=== PATIENT | female | born 1950 ===

== ENCOUNTER 2021-10-03 20:34 | Inpatient (IN) | payer MEDICARE ==
[~2021-10-03] VITALS: Ht 160 cm; Wt 105.8 kg
[2021-10-03 20:59] LABS: BASOPHILS % (AUTO) 0.6 % (0.0-2.0); EOSINOPHILS % (AUTO) 3.6 % (1.0-6.0); HEMATOCRIT 33.6 % (36-46); HEMOGLOBIN 11.1 g/dL (12.0-16.0); LYMPHOCYTES # (AUTO) 1.2 K/uL (1.0-4.8); LYMPHOCYTES % (AUTO) 5.8 % (22.0-44.0); MEAN CORPUSCULAR HEMOGLOBIN 28.7 pg (26.0-34.0); MEAN CORPUSCULAR HGB CONC 33.2 G/dL (31.0-37.0); MEAN CORPUSCULAR VOLUME 86 fL (80-100); MONOCYTES # (AUTO) 0.8 K/uL (0.1-1.0); MONOCYTES % (AUTO) 3.7 % (2.0-9.0); NEUTROPHILS % (AUTO) 86.3 % (40.0-70.0); PLATELET COUNT (AUTO) 510 K/uL (150-450); RED BLOOD CELL COUNT(AUTO) 3.89 MIL/uL (4.00-5.20); RED CELL DISTRIBUTION WIDTH 14.8 % (11.5-14.5)
[2021-10-03 21:11] LABS: ANION GAP 10 mmol/L (8-16); CARBON DIOXIDE 27 mmol/L (22-29); CHLORIDE 96 mmol/L (98-107); CREATININE 1.34 mg/dL (0.60-1.30); GLOMERULAR FILTR. RATE CALC 39 mL/min (>60); GLUCOSE,RANDOM 270 mg/dL (70-110); POTASSIUM 3.8 mmol/L (3.5-5.1); SODIUM SERUM 133 mmol/L (136-145); UREA NITROGEN, BLOOD 23 mg/dL (7-18)
[2021-10-03 21:12] LABS: PROTHROMBIN TIME 10.8 SEC (9.4-11.6)
[2021-10-03 21:18] LABS: LACTIC ACID 2.4 mmol/L (0.4-2.0)
[2021-10-03 21:24] LABS: ALANINE AMINOTRANSFERASE 20 U/L (12-78); ALBUMIN 2.8 g/dL (3.4-5.0); ALKALINE PHOSPHATASE 142 U/L (46-116); ASPARTATE AMINOTRANSFERASE 8 U/L (15-37); B-TYPE NATRIURETIC PEPTIDE 1070 pg/mL (0-100); BILIRUBIN,TOTAL 0.6 mg/dL (0.1-1.0); CREATINE KINASE, TOTAL ONLY 57 U/L (26-192)
[2021-10-03] MEDS ORDERED: PIPERACILLIN SODIUM/TAZOBACTAM 4.5 GM in DEXTROSE 5%-WATER 100 ML IV ONE (21:30)
[2021-10-03] MEDS ORDERED: VANCOMYCIN HCL 1 GM/D5% WATER 200 ML IV ONE (21:30)
[2021-10-03] MEDS ORDERED: SODIUM CHLORIDE 0.9% 1,000 ML IV ONE (22:45)
[2021-10-03 22:51] LABS: COVID AG,FIA SOURCE NASOPHARYNGEAL
[2021-10-03] MEDS ORDERED: HEPARIN SODIUM,PORCINE 5,000 UNITS/ML VIAL IVP PRN ×2 (23:15)
[2021-10-03] MEDS ORDERED: HEPARIN SODIUM,PORCINE 5,000 UNITS/ML VIAL IVP ONE ×2 (23:15→23:30)
[2021-10-03] MEDS ORDERED: HEPARIN SODIUM 25000 UNITS/D5W 250 ML IV PRN (23:15)
[2021-10-03 23:28] LABS: INFLUENZA TYPE A NEGATIVE FOR TYPE A (NEGATIVE); INFLUENZA TYPE B NEGATIVE FOR TYPE B (NEGATIVE)
[2021-10-03] MEDS ORDERED: ASPIRIN 81 MG CHEWABLE TABLET PO ONE (23:30)
[2021-10-03] MEDS ORDERED: DEXTROSE 50%-WATER 25 GM/50 ML SYRINGE IVP PRN (23:30)
[2021-10-03] MEDS ORDERED: ONDANSETRON HCL 4 MG/2 ML VIAL IVP PRN (23:30)
[2021-10-03] MEDS ORDERED: NITROGLYCERIN 0.6 MG SUBLINGUAL TABLET #100 SL PRN (23:30)
[2021-10-03] MEDS ORDERED: ATORVASTATIN CALCIUM 40 MG TABLET PO ONE (23:30)
[2021-10-03] MEDS ORDERED: METF-1211 PO (23:54)
[2021-10-03] MEDS ORDERED: CARV3 PO (23:54)
[2021-10-04] MEDS ORDERED: NITROGLYCERIN 0.4 MG SUBLINGUAL TABLET #25 SL PRN
[2021-10-04] MEDS ORDERED: HEPARIN SODIUM,PORCINE 5,000 UNITS/ML VIAL SQ SCH
[2021-10-04] MEDS: CARVEDILOL 3.125 MG TABLET PO SCH ×3 (00:20→21:29)
[2021-10-04 00:31] LABS: GLUCOSE,POINT OF CARE 202 MG/DL (70-110)
[2021-10-04] MEDS: INSULIN LISPRO 100 UNITS/ML SQ PRN ×2 (00:44→17:51)
[2021-10-04] MEDS: INSULIN GLARGINE,HUM.REC.ANLOG 100 UNITS/ML SQ SCH ×2 (00:44→21:30)
[2021-10-04] MEDS ORDERED: FURO20 PO (01:08)
[2021-10-04] MEDS ORDERED: ATOR40TA28 PO (01:08)
[2021-10-04] MEDS ORDERED: CITA-144 PO (01:08)
[2021-10-04] MEDS ORDERED: GABA-1216 PO (01:08)
[2021-10-04] MEDS ORDERED: GLIP2.5ER PO (01:08)
[2021-10-04] MEDS ORDERED: CLON1PAT12 TD (01:08)
[2021-10-04] MEDS ORDERED: ASPI81TA87 PO (01:08)
[2021-10-04] MEDS ORDERED: AMLO-258 PO (01:08)
[2021-10-04] MEDS: FUROSEMIDE 20 MG/2 ML VIAL IVP SCH ×3 (01:15→21:29)
[2021-10-04] MEDS: CefTRIAXone 1 GM/DEXTROSE 50 ML IV SCH ×2 (01:53→23:24)
[2021-10-04] MEDS: AZITHROMYCIN 500 MG/NS 250 ML IV SCH (02:19)
[2021-10-04] MEDS: FAMOTIDINE 10 MG/ML 2 ML VIAL IVP SCH ×2 (04:35→09:00)
[2021-10-04 06:32] LABS: BASOPHILS % (AUTO) 0.6 % (0.0-2.0); EOSINOPHILS % (AUTO) 2.5 % (1.0-6.0); HEMATOCRIT 27.3 % (36-46); HEMOGLOBIN 9.2 g/dL (12.0-16.0); LYMPHOCYTES # (AUTO) 1.5 K/uL (1.0-4.8); LYMPHOCYTES % (AUTO) 12.3 % (22.0-44.0); MEAN CORPUSCULAR HEMOGLOBIN 28.5 pg (26.0-34.0); MEAN CORPUSCULAR HGB CONC 33.5 G/dL (31.0-37.0); MEAN CORPUSCULAR VOLUME 85 fL (80-100); MONOCYTES # (AUTO) 0.5 K/uL (0.1-1.0); NEUTROPHILS % (AUTO) 80.6 % (40.0-70.0); PLATELET COUNT (AUTO) 426 K/uL (150-450); RED BLOOD CELL COUNT(AUTO) 3.21 MIL/uL (4.00-5.20); RED CELL DISTRIBUTION WIDTH 14.7 % (11.5-14.5)
[2021-10-04 06:46] LABS: GLUCOMETER DEV NAME(LOC) 5N.1C; GLUCOSE,POINT OF CARE 147 MG/DL (70-110)
[2021-10-04 06:47] LABS: CALCIUM, TOTAL 8.4 mg/dL (8.8-10.5); CREATININE 1.26 mg/dL (0.60-1.30); POTASSIUM 3.5 mmol/L (3.5-5.1)
[2021-10-04] MEDS: HEPARIN SODIUM,PORCINE 5,000 UNITS/ML VIAL IVP PRN (07:04)
[2021-10-04 07:38] VITALS: BP 164/58
[2021-10-04] MEDS: ASPIRIN 81 MG CHEWABLE TABLET PO SCH (08:00)
[2021-10-04] MEDS: GABAPENTIN 300 MG CAPSULE PO SCH ×3 (09:00→21:29)
[2021-10-04] MEDS: ATORVASTATIN CALCIUM 40 MG TABLET PO SCH (09:00)
[2021-10-04] MEDS ORDERED: MORPHINE SULFATE 2 MG/ML SYRINGE IM ONE (10:30)
[2021-10-04] MEDS ORDERED: 0.9% SODIUM CHLORIDE 5 ML NEB SOLUTION NEB ONE (11:36)
[2021-10-04 11:57] LABS: D-DIMER 3.72 mg/L FEU (0.00-0.50)
[2021-10-04 12:00] VITALS: BP 142/60
[2021-10-04 12:19] LABS: C-REACTIVE PROTEIN QUANT 7.5 mg/dL (0.00-0.30)
[2021-10-04] MEDS ORDERED: PROPOFOL 1000 MG/ISO-OSM 100 ML ONE (12:29)
[2021-10-04] MEDS ORDERED: FentaNYL CITRATE PF 100 MCG/2 ML VIAL IVP ONE ×2 (12:30→14:00)
[2021-10-04] MEDS ORDERED: NOREPINEPHRINE BITARTRATE 8 MG in DEXTROSE 5%-WATER 242 ML IV PRN (12:30)
[2021-10-04] MEDS ORDERED: FentaNYL CITRATE PF 100 MCG/2 ML VIAL ONE (12:38)
[2021-10-04] MEDS: PROPOFOL 1000 MG/ISO-OSM 100 ML IV PRN ×4 (12:48→21:54)
[2021-10-04] MEDS: FentaNYL CIT 1000MCG/0.9% NACL 100 ML IV PRN (14:02)
[2021-10-04] MEDS ORDERED: DOPamine 400MG/D5W[STANDARD] 250 ML IV PRN (15:00)
[2021-10-04] MEDS ORDERED: EPINEPHrine 1:10,000 [1 MG/10 ML] SYRINGE IVP ONE (16:28)
[2021-10-04] MEDS ORDERED: 0.9% SODIUM CHLORIDE 10 ML SYRINGE IVP ONE (16:28)
[2021-10-04] MEDS ORDERED: DOPamine HCL/D5W 400 MG/250 ML IV BAG IV ONE (16:28)
[2021-10-04 16:49] LABS: ABG BASE EXCESS -3.1 mmol/L (-2.0-3.0); ABG CARBOXYHEMOGLOBIN 0.2 % (0.0-1.5); ABG HCO3 21.6 mmol/L (22.0-26.0); ABG METHEMOGLOBIN 0.3 % (0.0-1.5); ABG OXYGEN CONTENT 13.1 mL/dL (15.0-23.0); ABG OXYGEN SATURATION 85.7 % (95.0-98.0); ABG OXYHEMOGLOBIN 85.3 % (94.0-100.0); ABG PCO2 49 mmHg (35-45); ABG PH 7.296 (7.35-7.450); ABG TOTAL HEMOGLOBIN 10.9 G/dL (12.0-18.0); PO2, ARTERIAL BG 54.4 mmHg (75.0-83.0); SOURCE, BLOOD GAS ARTERIAL; TEMPERATURE, FAHRENHEIT, BG 98.9 FAHREN (96.0-98.6)
[2021-10-04 16:50] LABS: O2 DEVICE,BLOOD GAS VENTILATOR (ROOM AIR); PEEP,BG 5 cm H2O; SITE, BLOOD GAS LFT BRACHIAL; SPONTANEOUS VT, BG 684 ml; VT, ABG 430 ml
[2021-10-04 16:51] LABS: GLUCOMETER DEV NAME(LOC) 5S.2B; GLUCOSE,POINT OF CARE 249 MG/DL (70-110)
[2021-10-04] MEDS ORDERED: SODIUM CHLORIDE 0.9% 250 ML IV ONE (16:53)
[2021-10-04] MEDS ORDERED: REMDESIVIR 200 MG in SODIUM CHLORIDE 0.9% 250 ML IV ONE (17:00)
[2021-10-04] MEDS: DEXAMETHASONE SOD PHOS 4 MG/ML VIAL IVP SCH (17:25)
[2021-10-04] MEDS: NOREPINEPHRINE 4 MG/D5%-WATER 250 ML IV PRN ×2 (17:26→23:23)
[2021-10-04 18:16] LABS: GLUCOSE,POINT OF CARE 311 MG/DL (70-110)
[2021-10-04 18:41] LABS: GLUCOSE,POINT OF CARE 264 MG/DL (70-110)
[2021-10-04 20:06] LABS: ABG CARBOXYHEMOGLOBIN 0.3 % (0.0-1.5); ABG HCO3 25.9 mmol/L (22.0-26.0); ABG METHEMOGLOBIN 0.3 % (0.0-1.5); ABG OXYGEN CONTENT 14.5 mL/dL (15.0-23.0); ABG OXYGEN SATURATION 94.5 % (95.0-98.0); ABG OXYHEMOGLOBIN 93.9 % (94.0-100.0); ABG PCO2 43 mmHg (35-45); ABG PH 7.409 (7.35-7.450); ABG TOTAL HEMOGLOBIN 10.9 G/dL (12.0-18.0); PO2, ARTERIAL BG 72.7 mmHg (75.0-83.0); SOURCE, BLOOD GAS ARTERIAL; TEMPERATURE, FAHRENHEIT, BG 97.3 FAHREN (96.0-98.6)
[2021-10-04 20:07] LABS: O2 DEVICE,BLOOD GAS VENTILATOR (ROOM AIR); SITE, BLOOD GAS RT BRACHIAL; SPONTANEOUS VT, BG 452 ml; VT, ABG 430 ml
[2021-10-04 20:09] LABS: PEEP,BG 10 cm H2O
[2021-10-04 20:37] VITALS: BP 153/72
[2021-10-04] MEDS ORDERED: IOHEXOL 350 MG/ML 100 ML VIAL ONE (20:43)
[2021-10-04] MEDS ORDERED: SODIUM CHLORIDE 0.9% 100 ML ONE (20:43)
[2021-10-04 22:12] VITALS: BP 155/70
[2021-10-04 22:16] LABS: GLUCOSE,POINT OF CARE 303 MG/DL (70-110)
[2021-10-05] VITALS (12 sets, daily range): BP systolic 118–151; BP diastolic 59–82
[2021-10-05] MEDS: PROPOFOL 1000 MG/ISO-OSM 100 ML IV PRN ×9 (00:30→22:39)
[2021-10-05] MEDS: AZITHROMYCIN 500 MG/NS 250 ML IV SCH (02:29)
[2021-10-05] MEDS: FentaNYL CIT 1000MCG/0.9% NACL 100 ML IV PRN ×2 (03:35→20:09)
[2021-10-05 06:07] LABS: BASOPHILS % (AUTO) 0.5 % (0.0-2.0); EOSINOPHILS % (AUTO) 0.1 % (1.0-6.0); HEMOGLOBIN 10.3 g/dL (12.0-16.0); LYMPHOCYTES # (AUTO) 0.6 K/uL (1.0-4.8); MEAN CORPUSCULAR HEMOGLOBIN 29.1 pg (26.0-34.0); MEAN CORPUSCULAR HGB CONC 34.3 G/dL (31.0-37.0); MEAN CORPUSCULAR VOLUME 85 fL (80-100); MONOCYTES # (AUTO) 0.5 K/uL (0.1-1.0); MONOCYTES % (AUTO) 4.1 % (2.0-9.0); NEUTROPHILS # (AUTO) 11.1 K/uL (1.8-7.7); PLATELET COUNT (AUTO) 528 K/uL (150-450); RED BLOOD CELL COUNT(AUTO) 3.53 MIL/uL (4.00-5.20); RED CELL DISTRIBUTION WIDTH 14.7 % (11.5-14.5)
[2021-10-05 06:20] LABS: NEUTROPHILS % (AUTO) 90.3 % (40.0-70.0)
[2021-10-05 06:27] LABS: D-DIMER 3.66 mg/L FEU (0.00-0.50)
[2021-10-05 06:29] LABS: ALBUMIN 2.5 g/dL (3.4-5.0); BILIRUBIN,TOTAL 0.6 mg/dL (0.1-1.0); C-REACTIVE PROTEIN QUANT 8.76 mg/dL (0.00-0.30); CALCIUM, TOTAL 8.8 mg/dL (8.8-10.5); CREATININE 1.21 mg/dL (0.60-1.30); POTASSIUM 3.4 mmol/L (3.5-5.1); TOTAL PROTEIN, SERUM 7.5 g/dL (6.4-8.2)
[2021-10-05] MEDS: GABAPENTIN 300 MG CAPSULE PO SCH ×3 (08:14→20:10)
[2021-10-05] MEDS: ATORVASTATIN CALCIUM 40 MG TABLET PO SCH (08:15)
[2021-10-05] MEDS: FAMOTIDINE 10 MG/ML 2 ML VIAL IVP SCH (08:15)
[2021-10-05] MEDS: CARVEDILOL 3.125 MG TABLET PO SCH ×2 (08:15→20:10)
[2021-10-05] MEDS: DEXAMETHASONE SOD PHOS 4 MG/ML VIAL IVP SCH (08:16)
[2021-10-05] MEDS: ASPIRIN 81 MG CHEWABLE TABLET PO SCH (08:16)
[2021-10-05] MEDS: FUROSEMIDE 20 MG/2 ML VIAL IVP SCH ×2 (08:17→20:09)
[2021-10-05] MEDS: INSULIN LISPRO 100 UNITS/ML SQ PRN ×2 (11:26→17:37)
[2021-10-05 11:57] LABS: GLUCOSE,POINT OF CARE 254 MG/DL (70-110)
[2021-10-05 11:57] LABS: GLUCOSE,POINT OF CARE 233 MG/DL (70-110)
[2021-10-05] MEDS: REMDESIVIR 100 MG in SODIUM CHLORIDE 0.9% 250 ML IV SCH (17:36)
[2021-10-05 17:57] LABS: GLUCOSE,POINT OF CARE 215 MG/DL (70-110)
[2021-10-05 21:20] LABS: GLUCOSE,POINT OF CARE 205 MG/DL (70-110)
[2021-10-05] MEDS: INSULIN GLARGINE,HUM.REC.ANLOG 100 UNITS/ML SQ SCH (21:28)
[2021-10-05] MEDS: HEPARIN SODIUM 25000 UNITS/D5W 250 ML IV PRN (22:33)
[2021-10-05] MEDS: CefTRIAXone 1 GM/DEXTROSE 50 ML IV SCH (22:50)
[2021-10-06] VITALS (8 sets, daily range): BP systolic 133–151; BP diastolic 71–80
[2021-10-06] MEDS: AZITHROMYCIN 500 MG/NS 250 ML IV SCH (01:39)
[2021-10-06] MEDS: PROPOFOL 1000 MG/ISO-OSM 100 ML IV PRN ×6 (04:14→21:35)
[2021-10-06 05:58] LABS: ALBUMIN 2.1 g/dL (3.4-5.0); BILIRUBIN,TOTAL 0.3 mg/dL (0.1-1.0); C-REACTIVE PROTEIN QUANT 4.24 mg/dL (0.00-0.30); CALCIUM, TOTAL 8.4 mg/dL (8.8-10.5); CREATININE 1.21 mg/dL (0.60-1.30); POTASSIUM 3.3 mmol/L (3.5-5.1); TOTAL PROTEIN, SERUM 6.4 g/dL (6.4-8.2)
[2021-10-06] MEDS: GABAPENTIN 300 MG CAPSULE PO SCH ×3 (08:04→21:34)
[2021-10-06] MEDS: CARVEDILOL 3.125 MG TABLET PO SCH ×2 (08:04→21:34)
[2021-10-06] MEDS: ATORVASTATIN CALCIUM 40 MG TABLET PO SCH (08:05)
[2021-10-06] MEDS: FAMOTIDINE 10 MG/ML 2 ML VIAL IVP SCH (08:05)
[2021-10-06] MEDS: DEXAMETHASONE SOD PHOS 4 MG/ML VIAL IVP SCH (08:05)
[2021-10-06] MEDS: FUROSEMIDE 20 MG/2 ML VIAL IVP SCH ×2 (08:05→21:35)
[2021-10-06] MEDS: POTASSIUM CHLORIDE 20 MEQ ER TABLET PO PRN (08:05)
[2021-10-06] MEDS: ASPIRIN 81 MG CHEWABLE TABLET PO SCH (08:06)
[2021-10-06] MEDS: FentaNYL CIT 1000MCG/0.9% NACL 100 ML IV PRN (08:07)
[2021-10-06] MEDS: INSULIN LISPRO 100 UNITS/ML SQ PRN ×2 (12:22→17:26)
[2021-10-06] MEDS: HEPARIN SODIUM,PORCINE 5,000 UNITS/ML VIAL IVP PRN (12:29)
[2021-10-06 12:37] LABS: GLUCOSE,POINT OF CARE 152 MG/DL (70-110)
[2021-10-06 12:37] LABS: GLUCOSE,POINT OF CARE 162 MG/DL (70-110)
[2021-10-06] MEDS: HEPARIN SODIUM 25000 UNITS/D5W 250 ML IV PRN (16:03)
[2021-10-06] MEDS ORDERED: SODIUM CHLORIDE 0.9% 250 ML IV ONE (17:00)
[2021-10-06] MEDS: REMDESIVIR 100 MG in SODIUM CHLORIDE 0.9% 250 ML IV SCH (17:25)
[2021-10-06 17:57] LABS: GLUCOSE,POINT OF CARE 205 MG/DL (70-110)
[2021-10-06] MEDS: POTASSIUM CHL 10 MEQ/WATER 50 ML IV PRN (21:36)
[2021-10-06] MEDS: CefTRIAXone 1 GM/DEXTROSE 50 ML IV SCH (23:50)
[2021-10-06] MEDS: INSULIN GLARGINE,HUM.REC.ANLOG 100 UNITS/ML SQ SCH (23:51)
[2021-10-07] VITALS (12 sets, daily range): BP systolic 127–168; BP diastolic 68–81
[2021-10-07 00:02] LABS: GLUCOSE,POINT OF CARE 164 MG/DL (70-110)
[2021-10-07] MEDS: POTASSIUM CHL 10 MEQ/WATER 50 ML IV PRN (00:34)
[2021-10-07] MEDS: AZITHROMYCIN 500 MG/NS 250 ML IV SCH (00:34)
[2021-10-07] MEDS: PROPOFOL 1000 MG/ISO-OSM 100 ML IV PRN ×3 (03:28→10:29)
[2021-10-07 03:51] LABS: BASOPHILS % (AUTO) 0.7 % (0.0-2.0); EOSINOPHILS % (AUTO) 0.5 % (1.0-6.0); HEMATOCRIT 33.1 % (36-46); LYMPHOCYTES # (AUTO) 1.8 K/uL (1.0-4.8); LYMPHOCYTES % (AUTO) 13.8 % (22.0-44.0); MEAN CORPUSCULAR HEMOGLOBIN 28.5 pg (26.0-34.0); MEAN CORPUSCULAR HGB CONC 33.2 G/dL (31.0-37.0); MEAN CORPUSCULAR VOLUME 86 fL (80-100); MONOCYTES % (AUTO) 7.3 % (2.0-9.0); NEUTROPHILS # (AUTO) 10.4 K/uL (1.8-7.7); NEUTROPHILS % (AUTO) 77.7 % (40.0-70.0); PLATELET COUNT (AUTO) 519 K/uL (150-450); RED BLOOD CELL COUNT(AUTO) 3.86 MIL/uL (4.00-5.20); RED CELL DISTRIBUTION WIDTH 15.1 % (11.5-14.5)
[2021-10-07 04:04] LABS: ALBUMIN 2.4 g/dL (3.4-5.0); BILIRUBIN,TOTAL 0.4 mg/dL (0.1-1.0); C-REACTIVE PROTEIN QUANT 2.43 mg/dL (0.00-0.30); CALCIUM, TOTAL 8.4 mg/dL (8.8-10.5); CREATININE 1.34 mg/dL (0.60-1.30)
[2021-10-07] MEDS: INSULIN LISPRO 100 UNITS/ML SQ PRN ×4 (06:28→21:46)
[2021-10-07] MEDS: FentaNYL CIT 1000MCG/0.9% NACL 100 ML IV PRN ×3 (07:09→19:55)
[2021-10-07] MEDS: ASPIRIN 81 MG CHEWABLE TABLET PO SCH (08:06)
[2021-10-07] MEDS: DEXAMETHASONE SOD PHOS 4 MG/ML VIAL IVP SCH (08:06)
[2021-10-07] MEDS: GABAPENTIN 300 MG CAPSULE PO SCH ×3 (08:06→19:56)
[2021-10-07] MEDS: CARVEDILOL 3.125 MG TABLET PO SCH ×2 (08:06→19:56)
[2021-10-07] MEDS: ETHYL ALCOHOL 62% ANTISEPTIC NASAL INHALANT 0.6 ML AMPUL NASAL SCH ×2 (08:06→20:08)
[2021-10-07] MEDS: ATORVASTATIN CALCIUM 40 MG TABLET PO SCH (08:06)
[2021-10-07] MEDS: FAMOTIDINE 10 MG/ML 2 ML VIAL IVP SCH (08:07)
[2021-10-07] MEDS: FUROSEMIDE 20 MG/2 ML VIAL IVP SCH ×2 (08:07→19:57)
[2021-10-07 09:27] LABS: GLUCOSE,POINT OF CARE 154 MG/DL (70-110)
[2021-10-07] MEDS: HEPARIN SODIUM 25000 UNITS/D5W 250 ML IV PRN (09:38)
[2021-10-07] MEDS: MIDAZOLAM HCL 100 MG in SODIUM CHLORIDE 0.9% 180 ML IV PRN (12:01)
[2021-10-07 13:11] LABS: GLUCOSE,POINT OF CARE 207 MG/DL (70-110)
[2021-10-07 13:52] LABS: PHOSPHORUS 4.2 mg/dL (2.5-4.9)
[2021-10-07] MEDS: REMDESIVIR 100 MG in SODIUM CHLORIDE 0.9% 250 ML IV SCH (17:36)
[2021-10-07 20:01] LABS: GLUCOSE,POINT OF CARE 244 MG/DL (70-110)
[2021-10-07] MEDS: HydrALAZINE HCL 20 MG/ML VIAL IVP PRN (21:31)
[2021-10-07] MEDS: INSULIN GLARGINE,HUM.REC.ANLOG 100 UNITS/ML SQ SCH (21:44)
[2021-10-07 22:36] LABS: GLUCOSE,POINT OF CARE 175 MG/DL (70-110)
[2021-10-08] VITALS: BP 159/85
[2021-10-08] MEDS: CefTRIAXone 1 GM/DEXTROSE 50 ML IV SCH (01:54)
[2021-10-08] MEDS: AZITHROMYCIN 500 MG/NS 250 ML IV SCH (01:55)
[2021-10-08 02:00] VITALS: BP 161/80
[2021-10-08] MEDS: HEPARIN SODIUM 25000 UNITS/D5W 250 ML IV PRN (04:37)
[2021-10-08 05:51] LABS: ALBUMIN 2.5 g/dL (3.4-5.0); BILIRUBIN,TOTAL 0.4 mg/dL (0.1-1.0); CALCIUM, TOTAL 8.9 mg/dL (8.8-10.5); CREATININE 1.09 mg/dL (0.60-1.30); POTASSIUM 3.5 mmol/L (3.5-5.1); TOTAL PROTEIN, SERUM 7.3 g/dL (6.4-8.2)
[2021-10-08 06:00] VITALS: BP 153/72
[2021-10-08 06:21] LABS: GLUCOSE,POINT OF CARE 112 MG/DL (70-110)
[2021-10-08] MEDS ORDERED: SODIUM CHLORIDE 0.9% 250 ML IV ONE (07:35)
[2021-10-08] MEDS: FUROSEMIDE 20 MG/2 ML VIAL IVP SCH ×2 (08:17→21:26)
[2021-10-08] MEDS: FAMOTIDINE 10 MG/ML 2 ML VIAL IVP SCH (08:17)
[2021-10-08] MEDS: DEXAMETHASONE SOD PHOS 4 MG/ML VIAL IVP SCH (08:17)
[2021-10-08] MEDS: ATORVASTATIN CALCIUM 40 MG TABLET PO SCH (08:18)
[2021-10-08] MEDS: ASPIRIN 81 MG CHEWABLE TABLET PO SCH (08:18)
[2021-10-08] MEDS: CARVEDILOL 3.125 MG TABLET PO SCH ×2 (08:18→21:00)
[2021-10-08] MEDS: ETHYL ALCOHOL 62% ANTISEPTIC NASAL INHALANT 0.6 ML AMPUL NASAL SCH ×2 (08:18→21:41)
[2021-10-08] MEDS: GABAPENTIN 300 MG CAPSULE PO SCH ×3 (08:18→21:26)
[2021-10-08] MEDS: HEPARIN SODIUM,PORCINE 5,000 UNITS/ML VIAL IVP PRN (10:32)
[2021-10-08] MEDS: INSULIN LISPRO 100 UNITS/ML SQ PRN ×2 (12:20→21:31)
[2021-10-08 12:31] LABS: GLUCOSE,POINT OF CARE 164 MG/DL (70-110)
[2021-10-08] MEDS: POTASSIUM CHL 10 MEQ/WATER 50 ML IV PRN ×3 (14:22→14:24)
[2021-10-08] MEDS ORDERED: GADOTERATE MEGLUMINE 10 MMOL/20 ML VIAL IVP ONE (17:28)
[2021-10-08] MEDS: REMDESIVIR 100 MG in SODIUM CHLORIDE 0.9% 250 ML IV SCH (19:00)
[2021-10-08] MEDS: MIDAZOLAM HCL 100 MG in SODIUM CHLORIDE 0.9% 180 ML IV PRN (21:28)
[2021-10-08 21:36] LABS: GLUCOSE,POINT OF CARE 159 MG/DL (70-110)
[2021-10-08] MEDS: INSULIN GLARGINE,HUM.REC.ANLOG 100 UNITS/ML SQ SCH (21:43)
[2021-10-08] MEDS: FentaNYL CIT 1000MCG/0.9% NACL 100 ML IV PRN (22:01)
[2021-10-09] MEDS: CefTRIAXone 1 GM/DEXTROSE 50 ML IV SCH ×2 (00:19→23:24)
[2021-10-09] MEDS: AZITHROMYCIN 500 MG/NS 250 ML IV SCH (00:57)
[2021-10-09] MEDS: HEPARIN SODIUM 25000 UNITS/D5W 250 ML IV PRN ×2 (02:45→19:25)
[2021-10-09 05:40] LABS: BASOPHILS % (AUTO) 0.9 % (0.0-2.0); EOSINOPHILS % (AUTO) 4.3 % (1.0-6.0); HEMOGLOBIN 10.8 g/dL (12.0-16.0); LYMPHOCYTES # (AUTO) 2.4 K/uL (1.0-4.8); LYMPHOCYTES % (AUTO) 19.5 % (22.0-44.0); MEAN CORPUSCULAR HEMOGLOBIN 28.3 pg (26.0-34.0); MEAN CORPUSCULAR HGB CONC 32.7 G/dL (31.0-37.0); MEAN CORPUSCULAR VOLUME 86 fL (80-100); MONOCYTES % (AUTO) 7.8 % (2.0-9.0); NEUTROPHILS # (AUTO) 8.3 K/uL (1.8-7.7); NEUTROPHILS % (AUTO) 67.5 % (40.0-70.0); PLATELET COUNT (AUTO) 530 K/uL (150-450); RED BLOOD CELL COUNT(AUTO) 3.82 MIL/uL (4.00-5.20); RED CELL DISTRIBUTION WIDTH 15.1 % (11.5-14.5)
[2021-10-09 05:47] LABS: CALCIUM, TOTAL 8.9 mg/dL (8.8-10.5); CREATININE 1.18 mg/dL (0.60-1.30); POTASSIUM 3.3 mmol/L (3.5-5.1)
[2021-10-09] MEDS: POTASSIUM CHL 10 MEQ/WATER 50 ML IV PRN (06:38)
[2021-10-09] MEDS: ASPIRIN 81 MG CHEWABLE TABLET PO SCH (08:16)
[2021-10-09] MEDS: GABAPENTIN 300 MG CAPSULE PO SCH ×3 (08:16→21:27)
[2021-10-09] MEDS: FUROSEMIDE 20 MG/2 ML VIAL IVP SCH ×2 (08:17→21:27)
[2021-10-09] MEDS: ATORVASTATIN CALCIUM 40 MG TABLET PO SCH (08:17)
[2021-10-09] MEDS: DEXAMETHASONE SOD PHOS 4 MG/ML VIAL IVP SCH (08:17)
[2021-10-09] MEDS: FAMOTIDINE 10 MG/ML 2 ML VIAL IVP SCH (08:17)
[2021-10-09] MEDS: POTASSIUM CHLORIDE 20 MEQ ER TABLET PO PRN (08:18)
[2021-10-09] MEDS: ETHYL ALCOHOL 62% ANTISEPTIC NASAL INHALANT 0.6 ML AMPUL NASAL SCH ×2 (08:18→21:27)
[2021-10-09] MEDS: CARVEDILOL 3.125 MG TABLET PO SCH ×2 (08:19→21:00)
[2021-10-09] MEDS: HEPARIN SODIUM,PORCINE 5,000 UNITS/ML VIAL IVP PRN (09:34)
[2021-10-09 11:56] LABS: GLUCOSE,POINT OF CARE 184 MG/DL (70-110)
[2021-10-09] MEDS: INSULIN LISPRO 100 UNITS/ML SQ PRN ×3 (12:11→21:32)
[2021-10-09 16:07] LABS: S PNEUMO SOURCE Urine; STREP PNEUMONIAE AG URINE Negative (Negative)
[2021-10-09] MEDS: DEXMEDETOMIDINE HCL 400 MCG in SODIUM CHLORIDE 0.9% 96 ML IV PRN (17:16)
[2021-10-09 18:01] LABS: GLUCOSE,POINT OF CARE 208 MG/DL (70-110)
[2021-10-09] MEDS: FentaNYL CIT 1000MCG/0.9% NACL 100 ML IV PRN (21:27)
[2021-10-09] MEDS: INSULIN GLARGINE,HUM.REC.ANLOG 100 UNITS/ML SQ SCH (21:29)
[2021-10-10] MEDS: AZITHROMYCIN 500 MG/NS 250 ML IV SCH (00:31)
[2021-10-10] MEDS: DEXMEDETOMIDINE HCL 400 MCG in SODIUM CHLORIDE 0.9% 96 ML IV PRN ×2 (05:30→20:45)
[2021-10-10 05:46] LABS: GLUCOSE,POINT OF CARE 188 MG/DL (70-110)
[2021-10-10] MEDS: INSULIN LISPRO 100 UNITS/ML SQ PRN ×4 (06:14→21:00)
[2021-10-10 06:30] LABS: BASOPHILS % (AUTO) 0.4 % (0.0-2.0); EOSINOPHILS % (AUTO) 1.5 % (1.0-6.0); HEMATOCRIT 32.4 % (36-46); HEMOGLOBIN 10.4 g/dL (12.0-16.0); LYMPHOCYTES # (AUTO) 1.7 K/uL (1.0-4.8); LYMPHOCYTES % (AUTO) 17.1 % (22.0-44.0); MEAN CORPUSCULAR HEMOGLOBIN 28.1 pg (26.0-34.0); MEAN CORPUSCULAR VOLUME 88 fL (80-100); MONOCYTES # (AUTO) 0.9 K/uL (0.1-1.0); MONOCYTES % (AUTO) 8.7 % (2.0-9.0); NEUTROPHILS # (AUTO) 7.1 K/uL (1.8-7.7); NEUTROPHILS % (AUTO) 72.3 % (40.0-70.0); PLATELET COUNT (AUTO) 500 K/uL (150-450); RED BLOOD CELL COUNT(AUTO) 3.68 MIL/uL (4.00-5.20); RED CELL DISTRIBUTION WIDTH 15.2 % (11.5-14.5)
[2021-10-10 06:37] LABS: GLUCOSE,POINT OF CARE 161 MG/DL (70-110)
[2021-10-10] MEDS: ASPIRIN 81 MG CHEWABLE TABLET PO SCH (07:55)
[2021-10-10] MEDS: FAMOTIDINE 10 MG/ML 2 ML VIAL IVP SCH (07:56)
[2021-10-10] MEDS: ETHYL ALCOHOL 62% ANTISEPTIC NASAL INHALANT 0.6 ML AMPUL NASAL SCH ×2 (07:56→21:07)
[2021-10-10] MEDS: ATORVASTATIN CALCIUM 40 MG TABLET PO SCH (07:56)
[2021-10-10] MEDS: GABAPENTIN 300 MG CAPSULE PO SCH ×3 (07:56→21:06)
[2021-10-10] MEDS: DEXAMETHASONE SOD PHOS 4 MG/ML VIAL IVP SCH (07:57)
[2021-10-10] MEDS: FUROSEMIDE 20 MG/2 ML VIAL IVP SCH (07:57)
[2021-10-10] MEDS: CARVEDILOL 3.125 MG TABLET PO SCH ×2 (07:57→21:00)
[2021-10-10 08:00] VITALS: BP 134/76
[2021-10-10 08:08] LABS: CALCIUM, TOTAL 8.2 mg/dL (8.8-10.5); CREATININE 1.2 mg/dL (0.60-1.30); POTASSIUM 3.8 mmol/L (3.5-5.1)
[2021-10-10 12:00] VITALS: BP 120/61
[2021-10-10 12:07] LABS: GLUCOSE,POINT OF CARE 179 MG/DL (70-110)
[2021-10-10] MEDS: HEPARIN SODIUM 25000 UNITS/D5W 250 ML IV PRN (14:20)
[2021-10-10] MEDS ORDERED: SODIUM CHLORIDE 0.9% 250 ML IV ONE (15:12)
[2021-10-10 16:11] LABS: ABG BASE EXCESS 5.2 mmol/L (-2.0-3.0); ABG CARBOXYHEMOGLOBIN 0.4 % (0.0-1.5); ABG HCO3 28.5 mmol/L (22.0-26.0); ABG METHEMOGLOBIN 0.3 % (0.0-1.5); ABG OXYGEN CONTENT 16.7 mL/dL (15.0-23.0); ABG OXYGEN SATURATION 96.9 % (95.0-98.0); ABG OXYHEMOGLOBIN 96.2 % (94.0-100.0); ABG PCO2 46 mmHg (35-45); ABG PH 7.426 (7.35-7.450); ABG TOTAL HEMOGLOBIN 12.3 G/dL (12.0-18.0); SOURCE, BLOOD GAS ARTERIAL
[2021-10-10 16:12] LABS: SITE, BLOOD GAS RT RADIAL
[2021-10-10 16:13] LABS: O2 DEVICE,BLOOD GAS VENTILATOR (ROOM AIR); PEEP,BG 5 cm H2O; VENT MODE, BG Press. Support Vent. (ROOM AIR)
[2021-10-10 16:14] LABS: PRESSURE SUPPORT, BG 5 cm H2O; SPONTANEOUS VT, BG 478 ml
[2021-10-10 17:21] LABS: GLUCOSE,POINT OF CARE 183 MG/DL (70-110)
[2021-10-10] MEDS: FentaNYL CIT 1000MCG/0.9% NACL 100 ML IV PRN (20:46)
[2021-10-10] MEDS: INSULIN GLARGINE,HUM.REC.ANLOG 100 UNITS/ML SQ SCH (21:03)
[2021-10-10 22:01] LABS: GLUCOSE,POINT OF CARE 203 MG/DL (70-110)
[2021-10-10] MEDS: CefTRIAXone 1 GM/DEXTROSE 50 ML IV SCH (23:53)
[2021-10-11] VITALS (8 sets, daily range): BP systolic 114–163; BP diastolic 59–85
[2021-10-11] MEDS: AZITHROMYCIN 500 MG/NS 250 ML IV SCH (00:28)
[2021-10-11] MEDS: HydrALAZINE HCL 20 MG/ML VIAL IVP PRN (02:42)
[2021-10-11] MEDS: DEXMEDETOMIDINE HCL 400 MCG in SODIUM CHLORIDE 0.9% 96 ML IV PRN (05:05)
[2021-10-11] MEDS: INSULIN LISPRO 100 UNITS/ML SQ PRN ×3 (06:07→18:29)
[2021-10-11 06:45] LABS: BASOPHILS % (AUTO) 0.7 % (0.0-2.0); EOSINOPHILS % (AUTO) 3.4 % (1.0-6.0); HEMATOCRIT 33.9 % (36-46); LYMPHOCYTES # (AUTO) 2.1 K/uL (1.0-4.8); MEAN CORPUSCULAR HEMOGLOBIN 27.8 pg (26.0-34.0); MEAN CORPUSCULAR HGB CONC 32.5 G/dL (31.0-37.0); MEAN CORPUSCULAR VOLUME 86 fL (80-100); MONOCYTES # (AUTO) 0.9 K/uL (0.1-1.0); MONOCYTES % (AUTO) 7.9 % (2.0-9.0); NEUTROPHILS # (AUTO) 8.2 K/uL (1.8-7.7); PLATELET COUNT (AUTO) 491 K/uL (150-450); RED BLOOD CELL COUNT(AUTO) 3.96 MIL/uL (4.00-5.20); RED CELL DISTRIBUTION WIDTH 14.9 % (11.5-14.5)
[2021-10-11 07:00] LABS: CREATININE 1.04 mg/dL (0.60-1.30); POTASSIUM 3.4 mmol/L (3.5-5.1)
[2021-10-11] MEDS: FAMOTIDINE 10 MG/ML 2 ML VIAL IVP SCH (08:43)
[2021-10-11] MEDS: FUROSEMIDE 20 MG/2 ML VIAL IVP SCH (08:43)
[2021-10-11] MEDS: CARVEDILOL 3.125 MG TABLET PO SCH ×2 (08:43→20:27)
[2021-10-11] MEDS: ATORVASTATIN CALCIUM 40 MG TABLET PO SCH (08:44)
[2021-10-11] MEDS: ASPIRIN 81 MG CHEWABLE TABLET PO SCH (08:44)
[2021-10-11] MEDS: GABAPENTIN 300 MG CAPSULE PO SCH ×3 (08:44→20:27)
[2021-10-11] MEDS: ETHYL ALCOHOL 62% ANTISEPTIC NASAL INHALANT 0.6 ML AMPUL NASAL SCH ×2 (08:46→20:27)
[2021-10-11 10:01] LABS: GLUCOSE,POINT OF CARE 160 MG/DL (70-110)
[2021-10-11] MEDS: HEPARIN SODIUM,PORCINE 5,000 UNITS/ML VIAL IVP PRN (10:16)
[2021-10-11] MEDS: HEPARIN SODIUM 25000 UNITS/D5W 250 ML IV PRN ×2 (10:18→11:23)
[2021-10-11 11:06] LABS: ABG METHEMOGLOBIN 0.3 % (0.0-1.5); SOURCE, BLOOD GAS ARTERIAL; TEMPERATURE, FAHRENHEIT, BG 98.6 FAHREN (96.0-98.6)
[2021-10-11 11:08] LABS: ABG BASE EXCESS -1.5 mmol/L (-2.0-3.0); ABG CARBOXYHEMOGLOBIN 0.7 % (0.0-1.5); ABG HCO3 23.6 mmol/L (22.0-26.0); ABG OXYGEN CONTENT 17.3 mL/dL (15.0-23.0); ABG OXYGEN SATURATION 97.7 % (95.0-98.0); ABG OXYHEMOGLOBIN 96.7 % (94.0-100.0); ABG PCO2 36 mmHg (35-45); ABG PH 7.426 (7.35-7.450); ABG TOTAL HEMOGLOBIN 12.6 G/dL (12.0-18.0); PO2, ARTERIAL BG 102.8 mmHg (75.0-83.0)
[2021-10-11 11:33] LABS: O2 DEVICE,BLOOD GAS VENTILATOR (ROOM AIR); PEEP,BG 5 cm H2O; PRESSURE SUPPORT, BG 5 cm H2O; SITE, BLOOD GAS RT RADIAL; SPONTANEOUS VT, BG 618 ml; VENT MODE, BG Press. Support Vent. (ROOM AIR)
[2021-10-11 13:31] LABS: GLUCOSE,POINT OF CARE 156 MG/DL (70-110)
[2021-10-11] MEDS: POTASSIUM CHL 10 MEQ/WATER 50 ML IV PRN ×3 (15:15→20:28)
[2021-10-11] MEDS ORDERED: SODIUM CHLORIDE 0.9% 250 ML IV ONE (15:27)
[2021-10-11 20:11] LABS: GLUCOSE,POINT OF CARE 198 MG/DL (70-110)
[2021-10-11 20:26] LABS: GLUCOSE,POINT OF CARE 166 MG/DL (70-110)
[2021-10-11] MEDS: INSULIN GLARGINE,HUM.REC.ANLOG 100 UNITS/ML SQ SCH (20:29)
[2021-10-12] VITALS (30 sets, daily range): BP systolic 110–190; BP diastolic 41–103
[2021-10-12] MEDS: HEPARIN SODIUM 25000 UNITS/D5W 250 ML IV PRN (03:22)
[2021-10-12 06:20] LABS: BASOPHILS % (AUTO) 0.9 % (0.0-2.0); EOSINOPHILS % (AUTO) 4.3 % (1.0-6.0); HEMATOCRIT 34.9 % (36-46); HEMOGLOBIN 11.3 g/dL (12.0-16.0); LYMPHOCYTES # (AUTO) 2.1 K/uL (1.0-4.8); LYMPHOCYTES % (AUTO) 16.5 % (22.0-44.0); MEAN CORPUSCULAR HEMOGLOBIN 27.7 pg (26.0-34.0); MEAN CORPUSCULAR HGB CONC 32.5 G/dL (31.0-37.0); MEAN CORPUSCULAR VOLUME 85 fL (80-100); NEUTROPHILS # (AUTO) 9.1 K/uL (1.8-7.7); NEUTROPHILS % (AUTO) 70.3 % (40.0-70.0); PLATELET COUNT (AUTO) 464 K/uL (150-450); RED BLOOD CELL COUNT(AUTO) 4.09 MIL/uL (4.00-5.20); RED CELL DISTRIBUTION WIDTH 14.8 % (11.5-14.5)
[2021-10-12 06:39] LABS: ALANINE AMINOTRANSFERASE 67 U/L (12-78); ALBUMIN 2.7 g/dL (3.4-5.0); ALKALINE PHOSPHATASE 114 U/L (46-116); ANION GAP 6 mmol/L (8-16); ASPARTATE AMINOTRANSFERASE 25 U/L (15-37); BILIRUBIN,TOTAL 0.6 mg/dL (0.1-1.0); C-REACTIVE PROTEIN QUANT 0.94 mg/dL (0.00-0.30); CALCIUM, TOTAL 9.3 mg/dL (8.8-10.5); CARBON DIOXIDE 29 mmol/L (22-29); CHLORIDE 102 mmol/L (98-107); CREATININE 0.86 mg/dL (0.60-1.30); GLUCOSE,RANDOM 108 mg/dL (70-110); POTASSIUM 3.7 mmol/L (3.5-5.1); SODIUM SERUM 137 mmol/L (136-145); TOTAL PROTEIN, SERUM 7.1 g/dL (6.4-8.2); UREA NITROGEN, BLOOD 26 mg/dL (7-18)
[2021-10-12 06:43] LABS: GLOMERULAR FILTR. RATE CALC > 60 mL/min (>60)
[2021-10-12 06:57] LABS: GLUCOSE,POINT OF CARE 113 MG/DL (70-110)
[2021-10-12] MEDS: FAMOTIDINE 10 MG/ML 2 ML VIAL IVP SCH (09:36)
[2021-10-12] MEDS: ETHYL ALCOHOL 62% ANTISEPTIC NASAL INHALANT 0.6 ML AMPUL NASAL SCH ×2 (09:36→18:00)
[2021-10-12] MEDS: FUROSEMIDE 20 MG/2 ML VIAL IVP SCH (09:37)
[2021-10-12] MEDS ORDERED: SODIUM BICARBONATE 50 MEQ/50 ML VIAL ONE (10:56)
[2021-10-12] MEDS ORDERED: IOHEXOL 300 MG/ML 50 ML VIAL ONE (10:56)
[2021-10-12] MEDS ORDERED: LIDOCAINE/PF 1% 30 ML VIAL ONE (10:56)
[2021-10-12] MEDS ORDERED: IOHEXOL 300 MG/ML 100 ML VIAL ONE ×2 (10:56→13:09)
[2021-10-12] MEDS ORDERED: IOHEXOL 300 MG/ML 150 ML VIAL ONE (10:56)
[2021-10-12] MEDS ORDERED: HEPARIN SODIUM 1000 UNITS/NS 1,000 ML ONE (10:56)
[2021-10-12] MEDS ORDERED: FentaNYL CITRATE PF 100 MCG/2 ML VIAL ONE ×2 (12:15→12:42)
[2021-10-12] MEDS ORDERED: MIDAZOLAM HCL 2 MG/2 ML VIAL ONE ×2 (12:16→13:26)
[2021-10-12] MEDS ORDERED: MIDAZOLAM HCL 2 MG/2 ML VIAL IVP ONE ×4 (12:45→13:30)
[2021-10-12] MEDS ORDERED: FentaNYL CITRATE PF 100 MCG/2 ML VIAL IVP ONE ×3 (12:45→13:00)
[2021-10-12] MEDS ORDERED: LIDOCAINE 1% 30 ML/SOD BICARB 8.4% 4 ML SQ ONE (12:45)
[2021-10-12] MEDS ORDERED: IOHEXOL 300 MG/ML 150 ML VIAL IARTER ONE (12:45)
[2021-10-12] MEDS ORDERED: SODIUM CHLORIDE 0.9% 500 ML IV ONE (12:45)
[2021-10-12] MEDS ORDERED: HEPARIN SODIUM 1000 UNITS/NS 1,000 ML IARTER ONE (12:45)
[2021-10-12 13:06] LABS: GLUCOSE,POINT OF CARE 137 MG/DL (70-110)
[2021-10-12] MEDS ORDERED: ADENOSINE 3 MG/ML 2 ML VIAL ONE (13:22)
[2021-10-12] MEDS ORDERED: CLOPIDOGREL BISULFATE 300 MG TABLET PO ONE (13:45)
[2021-10-12] MEDS ORDERED: ASPIRIN 81 MG CHEWABLE TABLET PO ONE (13:45)
[2021-10-12] MEDS: ASPIRIN 81 MG CHEWABLE TABLET PO SCH (14:38)
[2021-10-12] MEDS: GABAPENTIN 300 MG CAPSULE PO SCH ×3 (14:41→20:36)
[2021-10-12] MEDS: ATORVASTATIN CALCIUM 40 MG TABLET PO SCH (14:42)
[2021-10-12] MEDS: CARVEDILOL 3.125 MG TABLET PO SCH ×2 (14:42→20:36)
[2021-10-12 17:32] LABS: GLUCOSE,POINT OF CARE 235 MG/DL (70-110)
[2021-10-12] MEDS: INSULIN LISPRO 100 UNITS/ML SQ PRN ×2 (18:00→20:48)
[2021-10-12] MEDS: ACETAMINOPHEN 325 MG TABLET PO PRN (20:37)
[2021-10-12] MEDS: INSULIN GLARGINE,HUM.REC.ANLOG 100 UNITS/ML SQ SCH (20:48)
[2021-10-12 21:01] LABS: GLUCOSE,POINT OF CARE 234 MG/DL (70-110)
[2021-10-13] VITALS (10 sets, daily range): BP systolic 139–172; BP diastolic 64–99
[2021-10-13 05:02] LABS: EOSINOPHILS % (AUTO) 3.9 % (1.0-6.0); HEMATOCRIT 39.4 % (36-46); HEMOGLOBIN 12.5 g/dL (12.0-16.0); LYMPHOCYTES # (AUTO) 1.7 K/uL (1.0-4.8); LYMPHOCYTES % (AUTO) 14.7 % (22.0-44.0); MEAN CORPUSCULAR HGB CONC 31.8 G/dL (31.0-37.0); MEAN CORPUSCULAR VOLUME 88 fL (80-100); MONOCYTES % (AUTO) 8.7 % (2.0-9.0); NEUTROPHILS # (AUTO) 8.2 K/uL (1.8-7.7); NEUTROPHILS % (AUTO) 71.7 % (40.0-70.0); PLATELET COUNT (AUTO) 433 K/uL (150-450); RED BLOOD CELL COUNT(AUTO) 4.49 MIL/uL (4.00-5.20); RED CELL DISTRIBUTION WIDTH 15.4 % (11.5-14.5)
[2021-10-13 05:17] LABS: ALBUMIN 2.9 g/dL (3.4-5.0); BILIRUBIN,TOTAL 0.5 mg/dL (0.1-1.0); CALCIUM, TOTAL 9.3 mg/dL (8.8-10.5); CREATININE 1.07 mg/dL (0.60-1.30); POTASSIUM 4.1 mmol/L (3.5-5.1); TOTAL PROTEIN, SERUM 7.7 g/dL (6.4-8.2)
[2021-10-13] MEDS: INSULIN LISPRO 100 UNITS/ML SQ PRN ×4 (05:51→21:13)
[2021-10-13 06:01] LABS: GLUCOSE,POINT OF CARE 144 MG/DL (70-110)
[2021-10-13] MEDS: FAMOTIDINE 10 MG/ML 2 ML VIAL IVP SCH (08:27)
[2021-10-13] MEDS: CLOPIDOGREL BISULFATE 75 MG TABLET PO SCH (08:27)
[2021-10-13] MEDS: GABAPENTIN 300 MG CAPSULE PO SCH ×3 (08:27→21:10)
[2021-10-13] MEDS: ATORVASTATIN CALCIUM 40 MG TABLET PO SCH (08:27)
[2021-10-13] MEDS: ASPIRIN 81 MG CHEWABLE TABLET PO SCH (08:28)
[2021-10-13] MEDS: ETHYL ALCOHOL 62% ANTISEPTIC NASAL INHALANT 0.6 ML AMPUL NASAL SCH ×2 (08:31→21:11)
[2021-10-13] MEDS: CARVEDILOL 6.25 MG TABLET PO SCH ×2 (09:40→21:10)
[2021-10-13] MEDS: LOSARTAN POTASSIUM 25 MG TABLET PO SCH ×2 (09:40→23:18)
[2021-10-13 11:51] LABS: GLUCOSE,POINT OF CARE 161 MG/DL (70-110)
[2021-10-13 17:16] LABS: GLUCOSE,POINT OF CARE 152 MG/DL (70-110)
[2021-10-13] MEDS: ACETAMINOPHEN 325 MG TABLET PO PRN (21:11)
[2021-10-13] MEDS: HydrALAZINE HCL 20 MG/ML VIAL IVP PRN (21:11)
[2021-10-13] MEDS: INSULIN GLARGINE,HUM.REC.ANLOG 100 UNITS/ML SQ SCH (21:14)
[2021-10-14] VITALS (7 sets, daily range): BP systolic 113–160; BP diastolic 62–89
[2021-10-14 06:16] LABS: GLUCOMETER DEV NAME(LOC) 5N.1C; GLUCOSE,POINT OF CARE 231 MG/DL (70-110)
[2021-10-14 06:16] LABS: BASOPHILS % (AUTO) 1.2 % (0.0-2.0); HEMATOCRIT 39.8 % (36-46); LYMPHOCYTES # (AUTO) 1.9 K/uL (1.0-4.8); LYMPHOCYTES % (AUTO) 20.6 % (22.0-44.0); MEAN CORPUSCULAR HEMOGLOBIN 28.2 pg (26.0-34.0); MEAN CORPUSCULAR HGB CONC 32.6 G/dL (31.0-37.0); MEAN CORPUSCULAR VOLUME 86 fL (80-100); MONOCYTES # (AUTO) 0.9 K/uL (0.1-1.0); MONOCYTES % (AUTO) 9.7 % (2.0-9.0); NEUTROPHILS # (AUTO) 5.8 K/uL (1.8-7.7); NEUTROPHILS % (AUTO) 64.5 % (40.0-70.0); PLATELET COUNT (AUTO) 451 K/uL (150-450); RED BLOOD CELL COUNT(AUTO) 4.61 MIL/uL (4.00-5.20)
[2021-10-14 06:44] LABS: BILIRUBIN,TOTAL 0.6 mg/dL (0.1-1.0); CALCIUM, TOTAL 9.5 mg/dL (8.8-10.5); CREATININE 1.03 mg/dL (0.60-1.30); MAGNESIUM 2.7 mg/dL (1.80-2.40); POTASSIUM 3.9 mmol/L (3.5-5.1); TOTAL PROTEIN, SERUM 7.4 g/dL (6.4-8.2)
[2021-10-14] MEDS: INSULIN LISPRO 100 UNITS/ML SQ PRN ×2 (06:49→20:48)
[2021-10-14 07:51] LABS: GLUCOMETER DEV NAME(LOC) 5N.3; GLUCOSE,POINT OF CARE 168 MG/DL (70-110)
[2021-10-14] MEDS: LOSARTAN POTASSIUM 25 MG TABLET PO SCH ×2 (09:00→20:47)
[2021-10-14] MEDS: FAMOTIDINE 10 MG/ML 2 ML VIAL IVP SCH (09:03)
[2021-10-14] MEDS: CARVEDILOL 6.25 MG TABLET PO SCH ×2 (09:03→20:47)
[2021-10-14] MEDS: CLOPIDOGREL BISULFATE 75 MG TABLET PO SCH (09:03)
[2021-10-14] MEDS: ATORVASTATIN CALCIUM 40 MG TABLET PO SCH (09:03)
[2021-10-14] MEDS: ASPIRIN 81 MG CHEWABLE TABLET PO SCH (09:03)
[2021-10-14] MEDS: GABAPENTIN 300 MG CAPSULE PO SCH ×3 (09:04→20:47)
[2021-10-14] MEDS: ETHYL ALCOHOL 62% ANTISEPTIC NASAL INHALANT 0.6 ML AMPUL NASAL SCH ×2 (09:04→20:47)
[2021-10-14] MEDS: INSULIN GLARGINE,HUM.REC.ANLOG 100 UNITS/ML SQ SCH (09:12)
[2021-10-14 12:41] LABS: GLUCOMETER DEV NAME(LOC) 5N.3; GLUCOSE,POINT OF CARE 277 MG/DL (70-110)
[2021-10-15] VITALS: BP 117/87
[2021-10-15] MEDS: INSULIN LISPRO 100 UNITS/ML SQ PRN ×4 (05:47→20:40)
[2021-10-15 06:09] VITALS: BP 158/96
[2021-10-15 07:06] LABS: GLUCOMETER DEV NAME(LOC) 5N.3; GLUCOSE,POINT OF CARE 171 MG/DL (70-110)
[2021-10-15 07:06] LABS: GLUCOMETER DEV NAME(LOC) 5N.3; GLUCOSE,POINT OF CARE 193 MG/DL (70-110)
[2021-10-15 08:00] VITALS: BP 129/46
[2021-10-15 08:58] LABS: BASOPHILS % (AUTO) 3.2 % (0.0-2.0); EOSINOPHILS % (AUTO) 3.4 % (1.0-6.0); HEMATOCRIT 37.5 % (36-46); HEMOGLOBIN 12.3 g/dL (12.0-16.0); LYMPHOCYTES # (AUTO) 2.1 K/uL (1.0-4.8); LYMPHOCYTES % (AUTO) 18.1 % (22.0-44.0); MEAN CORPUSCULAR HEMOGLOBIN 28.1 pg (26.0-34.0); MEAN CORPUSCULAR HGB CONC 32.8 G/dL (31.0-37.0); MEAN CORPUSCULAR VOLUME 86 fL (80-100); MONOCYTES # (AUTO) 0.9 K/uL (0.1-1.0); MONOCYTES % (AUTO) 7.7 % (2.0-9.0); NEUTROPHILS % (AUTO) 67.6 % (40.0-70.0); PLATELET COUNT (AUTO) 442 K/uL (150-450); RED BLOOD CELL COUNT(AUTO) 4.38 MIL/uL (4.00-5.20); RED CELL DISTRIBUTION WIDTH 15.4 % (11.5-14.5)
[2021-10-15 09:16] LABS: ALBUMIN 3.1 g/dL (3.4-5.0); BILIRUBIN,TOTAL 0.5 mg/dL (0.1-1.0); CALCIUM, TOTAL 9.4 mg/dL (8.8-10.5); CREATININE 1.19 mg/dL (0.60-1.30); POTASSIUM 4.2 mmol/L (3.5-5.1); TOTAL PROTEIN, SERUM 7.5 g/dL (6.4-8.2)
[2021-10-15] MEDS: ETHYL ALCOHOL 62% ANTISEPTIC NASAL INHALANT 0.6 ML AMPUL NASAL SCH ×2 (09:50→20:28)
[2021-10-15] MEDS: GABAPENTIN 300 MG CAPSULE PO SCH ×3 (09:51→20:28)
[2021-10-15] MEDS: ASPIRIN 81 MG CHEWABLE TABLET PO SCH (09:51)
[2021-10-15] MEDS: CARVEDILOL 6.25 MG TABLET PO SCH ×2 (09:51→20:28)
[2021-10-15] MEDS: LOSARTAN POTASSIUM 25 MG TABLET PO SCH ×2 (09:51→20:35)
[2021-10-15] MEDS: FAMOTIDINE 10 MG/ML 2 ML VIAL IVP SCH (09:51)
[2021-10-15] MEDS: CLOPIDOGREL BISULFATE 75 MG TABLET PO SCH (09:52)
[2021-10-15] MEDS: ATORVASTATIN CALCIUM 40 MG TABLET PO SCH (09:52)
[2021-10-15 12:02] LABS: GLUCOMETER DEV NAME(LOC) 5S.2B; GLUCOSE,POINT OF CARE 222 MG/DL (70-110)
[2021-10-15 12:12] VITALS: BP 131/65
[2021-10-15 16:00] VITALS: BP 147/58
[2021-10-15 18:11] LABS: GLUCOMETER DEV NAME(LOC) 5N.1C; GLUCOSE,POINT OF CARE 218 MG/DL (70-110)
[2021-10-15 20:13] VITALS: BP 146/66
[2021-10-15] MEDS: ACETAMINOPHEN 325 MG TABLET PO PRN (20:28)
[2021-10-15] MEDS: INSULIN GLARGINE,HUM.REC.ANLOG 100 UNITS/ML SQ SCH (20:40)
[2021-10-16 00:18] VITALS: BP 133/76
[2021-10-16] MEDS: INSULIN LISPRO 100 UNITS/ML SQ PRN ×4 (06:27→20:36)
[2021-10-16 06:47] LABS: GLUCOMETER DEV NAME(LOC) 5N.1C; GLUCOSE,POINT OF CARE 203 MG/DL (70-110)
[2021-10-16 07:17] LABS: GLUCOMETER DEV NAME(LOC) 5N.3; GLUCOSE,POINT OF CARE 264 MG/DL (70-110)
[2021-10-16 07:31] LABS: BASOPHILS % (AUTO) 2.2 % (0.0-2.0); EOSINOPHILS % (AUTO) 5.2 % (1.0-6.0); HEMATOCRIT 37.3 % (36-46); LYMPHOCYTES # (AUTO) 1.9 K/uL (1.0-4.8); LYMPHOCYTES % (AUTO) 17.5 % (22.0-44.0); MEAN CORPUSCULAR HEMOGLOBIN 28.4 pg (26.0-34.0); MEAN CORPUSCULAR HGB CONC 32.1 G/dL (31.0-37.0); MEAN CORPUSCULAR VOLUME 88 fL (80-100); MONOCYTES # (AUTO) 0.7 K/uL (0.1-1.0); MONOCYTES % (AUTO) 5.9 % (2.0-9.0); NEUTROPHILS # (AUTO) 7.7 K/uL (1.8-7.7); NEUTROPHILS % (AUTO) 69.2 % (40.0-70.0); PLATELET COUNT (AUTO) 362 K/uL (150-450); RED BLOOD CELL COUNT(AUTO) 4.23 MIL/uL (4.00-5.20); RED CELL DISTRIBUTION WIDTH 15.6 % (11.5-14.5)
[2021-10-16 07:52] VITALS: BP 147/68
[2021-10-16] MEDS: CARVEDILOL 6.25 MG TABLET PO SCH ×2 (07:54→20:34)
[2021-10-16] MEDS: GABAPENTIN 300 MG CAPSULE PO SCH ×3 (07:54→20:34)
[2021-10-16] MEDS: CLOPIDOGREL BISULFATE 75 MG TABLET PO SCH (07:54)
[2021-10-16] MEDS: ATORVASTATIN CALCIUM 40 MG TABLET PO SCH (07:55)
[2021-10-16] MEDS: FAMOTIDINE 10 MG/ML 2 ML VIAL IVP SCH (07:55)
[2021-10-16] MEDS: ETHYL ALCOHOL 62% ANTISEPTIC NASAL INHALANT 0.6 ML AMPUL NASAL SCH ×2 (07:55→20:34)
[2021-10-16] MEDS: ASPIRIN 81 MG CHEWABLE TABLET PO SCH (07:55)
[2021-10-16] MEDS: LOSARTAN POTASSIUM 25 MG TABLET PO SCH ×2 (09:29→20:34)
[2021-10-16 09:35] LABS: CALCIUM, TOTAL 9.4 mg/dL (8.8-10.5); POTASSIUM 4.1 mmol/L (3.5-5.1)
[2021-10-16 12:03] VITALS: BP 152/89
[2021-10-16 15:26] VITALS: BP 140/76
[2021-10-16 17:21] LABS: GLUCOMETER DEV NAME(LOC) 5S.1B; GLUCOSE,POINT OF CARE 224 MG/DL (70-110)
[2021-10-16 18:11] LABS: GLUCOMETER DEV NAME(LOC) 5N.1C; GLUCOSE,POINT OF CARE 225 MG/DL (70-110)
[2021-10-16 19:30] VITALS: BP 149/71
[2021-10-16] MEDS: INSULIN GLARGINE,HUM.REC.ANLOG 100 UNITS/ML SQ SCH (20:37)
[2021-10-16] MEDS: ACETAMINOPHEN 325 MG TABLET PO PRN (20:41)
[2021-10-16 23:20] VITALS: BP 154/84
[2021-10-17 02:31] LABS: GLUCOMETER DEV NAME(LOC) 5N.3; GLUCOSE,POINT OF CARE 207 MG/DL (70-110)
[2021-10-17 04:05] VITALS: BP 142/78
[2021-10-17 06:46] LABS: GLUCOMETER DEV NAME(LOC) 5N.1C; GLUCOSE,POINT OF CARE 128 MG/DL (70-110)
[2021-10-17 07:46] VITALS: BP 132/83
[2021-10-17 08:42] LABS: BASOPHILS % (AUTO) 1.5 % (0.0-2.0); EOSINOPHILS % (AUTO) 5.5 % (1.0-6.0); HEMATOCRIT 40.2 % (36-46); HEMOGLOBIN 13.3 g/dL (12.0-16.0); LYMPHOCYTES # (AUTO) 1.8 K/uL (1.0-4.8); LYMPHOCYTES % (AUTO) 16.8 % (22.0-44.0); MEAN CORPUSCULAR HEMOGLOBIN 28.5 pg (26.0-34.0); MEAN CORPUSCULAR VOLUME 86 fL (80-100); MONOCYTES # (AUTO) 0.6 K/uL (0.1-1.0); MONOCYTES % (AUTO) 5.5 % (2.0-9.0); NEUTROPHILS # (AUTO) 7.7 K/uL (1.8-7.7); NEUTROPHILS % (AUTO) 70.7 % (40.0-70.0); PLATELET COUNT (AUTO) 468 K/uL (150-450); RED BLOOD CELL COUNT(AUTO) 4.66 MIL/uL (4.00-5.20); RED CELL DISTRIBUTION WIDTH 15.7 % (11.5-14.5)
[2021-10-17] MEDS: FAMOTIDINE 10 MG/ML 2 ML VIAL IVP SCH (09:00)
[2021-10-17] MEDS: ETHYL ALCOHOL 62% ANTISEPTIC NASAL INHALANT 0.6 ML AMPUL NASAL SCH (09:00)
[2021-10-17 09:03] LABS: ALBUMIN 3.2 g/dL (3.4-5.0); BILIRUBIN,TOTAL 0.7 mg/dL (0.1-1.0); CALCIUM, TOTAL 9.7 mg/dL (8.8-10.5); CREATININE 1.07 mg/dL (0.60-1.30); POTASSIUM 4.2 mmol/L (3.5-5.1)
[2021-10-17] MEDS: GABAPENTIN 300 MG CAPSULE PO SCH ×2 (09:48→16:46)
[2021-10-17] MEDS: ASPIRIN 81 MG CHEWABLE TABLET PO SCH (09:49)
[2021-10-17] MEDS: CARVEDILOL 6.25 MG TABLET PO SCH (09:50)
[2021-10-17] MEDS: CLOPIDOGREL BISULFATE 75 MG TABLET PO SCH (09:51)
[2021-10-17] MEDS: ATORVASTATIN CALCIUM 40 MG TABLET PO SCH (09:51)
[2021-10-17] MEDS: LOSARTAN POTASSIUM 25 MG TABLET PO SCH (09:57)
[2021-10-17 11:42] VITALS: BP 105/49
[2021-10-17 15:59] VITALS: BP 137/67
[2021-10-17 16:48] LABS: COVID AG,FIA SOURCE NASOPHARYNGEAL
[2021-10-17 17:41] LABS: GLUCOMETER DEV NAME(LOC) 5N.1C; GLUCOSE,POINT OF CARE 203 MG/DL (70-110)
[2021-10-17] MEDS ORDERED: CARV6 PO (17:45)
[2021-10-17] MEDS ORDERED: CLOP75TA60 PO (17:46)
[2021-10-17] MEDS ORDERED: FURO20 PO (17:48)
[2021-10-17] MEDS ORDERED: GABA-1181 PO (17:49)
[2021-10-17] MEDS ORDERED: INSLAN SQ (17:49)
[2021-10-17] MEDS ORDERED: LOSA-381 PO (17:50)
[2021-10-18] MEDS ORDERED: FUROSEMIDE 20 MG TABLET PO SCH (09:00)
== END 2021-10-17 12:00 | DRG 853 ==
LOC: EMS 20:37 → 5N 10-04 03:00 → ICU 10-04 10:51 → 5S 10-13 18:15
PROVIDERS: ADMIT Internal Medicine; ATTEND Internal Medicine
PROC: 5A1955Z Respiratory Ventilation, Greater than 96 Consecutive Hours (ICD-10-PCS; principal; 2021-10-04)
PROC: 0BH17EZ Insertion of Endotracheal Airway into Trachea, Via Natural or Artificial Opening (ICD-10-PCS; 2021-10-04)
PROC: 02HV33Z Insertion of Infusion Device into Superior Vena Cava, Percutaneous Approach (ICD-10-PCS; 2021-10-04)
PROC: B548ZZA Ultrasonography of Superior Vena Cava, Guidance (ICD-10-PCS; 2021-10-04)
PROC: XW033E5 Introduction of Remdesivir Anti-infective into Peripheral Vein, Percutaneous Approach, New Technology Group 5 (ICD-10-PCS; 2021-10-04)
PROC: 02703ZZ Dilation of Coronary Artery, One Artery, Percutaneous Approach (ICD-10-PCS; 2021-10-12)
PROC: 4A023N7 Measurement of Cardiac Sampling and Pressure, Left Heart, Percutaneous Approach (ICD-10-PCS; 2021-10-12)
PROC: B2111ZZ Fluoroscopy of Multiple Coronary Arteries using Low Osmolar Contrast (ICD-10-PCS; 2021-10-12)
PROC: B21F1ZZ Fluoroscopy of Other Bypass Graft using Low Osmolar Contrast (ICD-10-PCS; 2021-10-12)
PROC: B2181ZZ Fluoroscopy of Left Internal Mammary Bypass Graft using Low Osmolar Contrast (ICD-10-PCS; 2021-10-12)
DX: A41.9 Sepsis, unspecified organism (principal); J18.9 Pneumonia, unspecified organism; J96.01 Acute respiratory failure with hypoxia; G93.41 Metabolic encephalopathy; I21.4 Non-ST elevation (NSTEMI) myocardial infarction; I46.9 Cardiac arrest, cause unspecified; J15.9 Unspecified bacterial pneumonia; J96.21 Acute and chronic respiratory failure with hypoxia; I50.23 Acute on chronic systolic (congestive) heart failure; R41.4 Neurologic neglect syndrome; N17.9 Acute kidney failure, unspecified; Z99.11 Dependence on respirator [ventilator] status; Z68.43 Body mass index [BMI] 50.0-59.9, adult; Z20.822 Contact with and (suspected) exposure to COVID-19; E11.9 Type 2 diabetes mellitus without complications; E66.01 Morbid (severe) obesity due to excess calories; I11.0 Hypertensive heart disease with heart failure; E78.5 Hyperlipidemia, unspecified; I25.10 Atherosclerotic heart disease of native coronary artery without angina pectoris; I34.2 Nonrheumatic mitral (valve) stenosis; F41.9 Anxiety disorder, unspecified; I25.5 Ischemic cardiomyopathy; Z90.5 Acquired absence of kidney; Z79.4 Long term (current) use of insulin; Z79.02 Long term (current) use of antithrombotics/antiplatelets; Z79.899 Other long term (current) drug therapy; Z95.1 Presence of aortocoronary bypass graft; Z86.16 Personal history of COVID-19; Z86.73 Personal history of transient ischemic attack (TIA), and cerebral infarction without residual deficits
CPT/HCPCS: 36600; 70450; 70553; 71045; 80048; 80053; 82550; 82728; 82805; 82962; 83605; 83615; 83735; 83880; 84100; 84132; 84145; 84484; 85025; 85379; 85384; 85610; 85730; 86140; 86682; 87040; 87070; 87081; 87449; 87804; 87899; 92610; 92920; 92950; 93005; 93306; 93459; 93970; 94002; 94003; 94660; 97162; 97530; 99291; G0378; J0153; J0171; J0360; J0456; J0696; J1100; J1265; J1644; J1815; J1940; J2250; J2543; J2704; J3010; J3370; J3480; J3490; J7030; J7050; J7060; Q9967; 36415-L1; 36415-TC; U0003